=== PATIENT | male | born 1985 ===

== ENCOUNTER 2024-05-29 18:08 | Observation (INO) | payer SELFPAY ==
[~2024-05-29] VITALS: Ht 190.5 cm; Wt 113.3 kg
[2024-05-29 18:24] LABS: BASO % 0.3 % (0.0-2.0); EOS # 0.1 K/mm3 (0.0-0.7); EOS % 0.4 % (0.0-4.0); GRAN # 8.9 K/mm3 (1.4-6.5); GRAN % 74.8 % (42.2-75.2); HEMATOCRIT 50.3 % (42.0-52.0); HEMOGLOBIN 17.1 g/dl (13.5-18.0); LYMPH # 2.1 K/mm3 (1.2-3.4); MEAN CELL VOLUME 86 fl (80.0-100.0); MEAN CORPUSCULAR HEMOGLOBIN 29 pg (27-31); MEAN CORPUSCULAR HGB CONC 34 g/dl (33.0-37.0); MEAN PLATELET VOLUME 9.6 fl (7.4-10.4); MONO # 0.7 K/mm3 (0.1-0.6); MONO % 5.7 % (1.7-9.3); PLATELET COUNT 294 K/mm3 (130-400); RED BLOOD COUNT 5.88 M/mm3 (4.20-5.60)
[2024-05-29 18:39] LABS: ALANINE AMINOTRANSFERASE 37 U/L (0-55); ALBUMIN 5.1 g/dL (3.5-5.0); ALKALINE PHOSPHATASE 100 U/L (40-150); ANION GAP 18 mmol/L (7-16); AST,SGOT 28 U/L (5-34); BILIRUBIN,TOTAL 0.6 mg/dL (0.2-1.2); BLOOD UREA NITROGEN 42 mg/dL (9-21); CALCIUM 11.3 mg/dL (8.4-10.2); CHLORIDE 99 mEq/L (98-107); CREATININE, serum 3.16 mg/dL (0.72-1.25); GLUCOSE 112 mg/dL (70-99); LIPASE 14 U/L (8-78); POTASSIUM 5.2 mEq/L (3.5-4.5); SODIUM 137 mEq/L (136-145); TOTAL PROTEIN 9.3 g/dl (6.2-8.1)
[2024-05-29] MEDS ORDERED: NS 1,000 ML IV ONE (18:45)
[2024-05-29] MEDS ORDERED: Morphine 4 MG/ML VIAL IV ONE (18:45)
[2024-05-29 18:47] LABS: TROPONIN-I < 0.010 ng/mL (0.00-0.033)
[2024-05-29] MEDS ORDERED: Ondansetron 4 MG/2 ML VIAL IV ONE (19:00)
[2024-05-29 19:40] LABS: URINE APPEARANCE TURBID (CLEAR/HAZY); URINE BLOOD TRACE (NEGATIVE); URINE COLOR Dark Yellow (YELLOW); URINE GLUCOSE NEGATIVE (NEGATIVE); URINE KETONE 1+ (NEGATIVE); URINE NITRATE NEGATIVE (NEGATIVE); URINE PROTEIN(semi-quant) 2+ (NEGATIVE)
[2024-05-29 19:48] LABS: TRICYCLIC ANTIDEPRESS URINE NEGATIVE (NEGATIVE)
[2024-05-29 20:09] LABS: COLLECTION METHOD CLEAN CATCH
[2024-05-29 20:10] LABS: MUCOUS PRESENT (NOT PRESENT); SQUAMOUS EPITHELIAL 0-2 /hpf (0-10); URINE BACTERIA MANY /hpf (NONE SEEN); URINE RBC 0-2 /hpf (0-2); URINE WBC 0-2 /hpf (0-2)
[2024-05-29] MEDS ORDERED: Pantoprazole 40 MG in NS 10 ML IV SCH (20:20)
[2024-05-29] MEDS ORDERED: Polyethylene Glycol 3350 17 GM PDS PO PRN (20:30)
[2024-05-29] MEDS ORDERED: Acetaminophen 500 MG TAB PO PRN (20:30)
[2024-05-29] MEDS ORDERED: NS 1,000 ML IV SCH (20:30)
[2024-05-29] MEDS ORDERED: Mag/Al Hydrox/Simeth Susp 30 ML CUP PO ONE (20:30)
[2024-05-29 22:52] VITALS: BP 129/83; PULSE 86; TEMP 97.6
--- NOTE | 2024-05-29 23:20 | NUR ---
PT ARRIVED TO ROOM 347 FROM ED VIA W/C. HERE FOR MO. A&O X4. VSS. PT ON TELE NSR, 80'S-90'S. PT REPORTING CHEST PAIN & HICCUPS SINCE 9AM. HOSPITALIST Valorie KAPLAN NOTIFIED & NEW ORDER FOR SL NITRO NOW, IF CHEST PAIN DOESNT IMPROVE WILL REPEAT EKG. IVF INFUSING TO LEFT AC AT 150MLS/HR. INT TO RT AC PATENT. PT ORIENTED TO ROOM. DENYING OTHER NEEDS AT THIS TIME. CALL LIGHT IN REACH.
[2024-05-29 23:41] VITALS: BP 125/75; PULSE 90; TEMP 97.4
[2024-05-30] VITALS (7 sets, daily range): BP systolic 116–129; BP diastolic 70–81; PULSE 73–79; TEMP 97.4–98
--- NOTE | 2024-05-30 00:15 | NUR ---
PT RESTING IN BED WITH UNLABORED RESP. REPORTS CHEST PAIN HAS RESOLVED. DENYING OTHER NEEDS. CALL LIGHT IN REACH
--- NOTE | 2024-05-30 06:11 | NUR ---
PT RESTING IN BED WITH UNLABORED RESP. NO FURTHER C/O CHEST PAIN. CALL LIGHT IN REACH
[2024-05-30 07:12] LABS: CALCIUM 9.1 mg/dL (8.4-10.2); CREATININE, serum 1.45 mg/dL (0.72-1.25); POTASSIUM 4.3 mEq/L (3.5-4.5)
--- NOTE | 2024-05-30 09:10 | NUR ---
Patient awake, alert and oriented. Denies pain, shortness of breath or nausea. States he feels much better after getting some rest. Bed in lowest position with call light within reach.
--- NOTE | 2024-05-30 09:27 | NUR ---
plastics worker met with pt and his friend to discuss intake information. He reports to be from [place], [place] and only in [place], staying in a motel for a few months for a contracted job. He does not typically get sick and has no PCP. He reports he usually goes to a doctor in [place] as [place]. He was open to following up with providers, if reccomended following this hospital stay. SW discussed the [facility] since he does not have insurance. Pt verbalized understanding and will call SW if he needs assistance upon discharge. He obtains medications from [facility] with no difficulites and often does not get meds. He is independent with ADLS and uses no DME. He does not have a DPOA-HC and reports both of his parents are living. His mother, Lulú [phone] is his contact and he only wants her called in the event of an emergency. Discharge Plan: home
--- NOTE | 2024-05-30 12:54 | NUR ---
Educated on discharge instructions, pt verbalized understanding. IV and telemetry removed prior to dischare, x2 IV catheters tips intact. Assisted out to car by nursing staff, picked up by friend. All belongings (phone, wallet, clothing) sent home with patient.
== END 2024-05-30 13:22 | disposition home or self-care (01) ==
LOC: COL.ER 18:08 → SURG 20:18 → COL.ER 20:18 → SURG 05-30 13:22
PROVIDERS: Nurse Practitioner; Physician Assistant; ADMIT Internal Medicine
DX: R07.9 Chest pain, unspecified (principal); N17.9 Acute kidney failure, unspecified; F17.220 Nicotine dependence, chewing tobacco, uncomplicated
CPT/HCPCS: G0378; J2270; J2470; J7030